=== PATIENT | female | born 1970 | race Two or more races ===

== ENCOUNTER 2019-06-23 22:59 | Emergency (ER) | payer BC ==
[~2019-06-23] VITALS: Ht 160 cm; Wt 83.9 kg
[2019-06-24] MEDS ORDERED: TAMS0.4C PO (08:12)
[2019-06-24] MEDS ORDERED: BACTRIM DS TAB1 EACH PO (08:12)
[2019-06-24] MEDS ORDERED: BUTALB-ACETAMI1 EAC2 PO (08:12)
[2019-06-24] MEDS ORDERED: URIN D.S. TABL1 EACH PO (08:12)
== END 2019-06-24 09:35 ==
LOC: ER 22:59
DX: N20.0 Calculus of kidney (principal); R31.0 Gross hematuria; N39.0 Urinary tract infection, site not specified; B96.29 Other Escherichia coli [E. coli] as the cause of diseases classified elsewhere